=== PATIENT | male | born 1985 | race Caucasian/White ===

== ENCOUNTER 2025-01-19 04:34 | Inpatient (IN) | payer BC ==
[2025-01-19 04:58] LABS: #Basophils Less than 0.03 10x3/uL (0.0-0.2); #Eosinophils 0.10 10x3/uL (0.0-0.7); #Monocytes 0.44 10x3/uL (0.11-0.59); #Neutrophils 4.22 10x3/uL (1.40-6.50); %Basophils 0.1 % (0.0-1.0); %Eosinophils 1.4 % (0.0-10.0); %Lymphocytes 33.0 % (21.0-51.0); %Monocytes 6.1 % (0.0-10.0); %Neutrophils 58.7 % (42.0-75.0); Hematocrit 36.5 % (42.0-52.0); Hemoglobin 13.0 g/dL (14.0-18.0); Mean Corpuscular Hemoglobin 27.7 pg (27.0-31.0); Mean Corpuscular Volume 77.7 fL (78.0-98.0); Platelet Count 155 10x3/uL (130-400); Red Blood Cell (RBC) Count 4.70 mill/uL (4.70-6.10); White Blood Cell (WBC) Count 7.19 10x3/uL (4.8-10.8)
[2025-01-19 05:31] LABS: ALT (SGPT) 49 U/L (Less than 45); AST (SGOT) 36 U/L (11-34); Albumin 3.8 g/dL (3.1-4.5); Alkaline Phosphatase 85 U/L (40-110); Anion Gap 13 mmol/L (10-20); BUN (Urea Nitrogen) 10 mg/dL (8.9-20.6); Bilirubin, Total 0.7 mg/dL (0.3-1.2); Calc. Creatinine Clearance 0 mL/min (70-130); Calcium 8.6 mg/dL (7.8-10.44); Carbon Dioxide 23 mmol/L (22-29); Chloride 105 mmol/L (98-107); Globulin 3.3 g/dL (2.4-3.5); Glucose 106 mg/dL (70-105); Potassium 3.8 mmol/L (3.5-5.1); Sodium 137 mmol/L (136-145)
[2025-01-19 05:35] LABS: Lipase 988 U/L (8-78)
[2025-01-19 06:09] LABS: Bacteria/HPF None Seen HPF (None Seen); CAUTI Indications for Culture Pelvic or flank pain; Glucose, Urine (Dipstick) Normal (Negative); Leukocyte 75 Leu/uL (Negative); Protein, Urine (Dipstick) Negative (Neg-Trace); RBC/HPF 0-3 HPF (0-3); Specific Gravity, Urine 1.013 (1.002-1.036)
[2025-01-19 06:11] LABS: Urine Culture Reflex Yes Yes
[2025-01-19] MEDS ORDERED: Droperidol 5 MG/2 ML VIAL ONE (06:17)
[2025-01-19] MEDS ORDERED: Bisacodyl 10 MG SUPP PR PRN (07:47)
[2025-01-19] MEDS ORDERED: Melatonin 3 MG TAB PO PRN (07:47)
[2025-01-19] MEDS ORDERED: Senokot S 8.6-50 MG TAB PO PRN (07:47)
[2025-01-19] MEDS ORDERED: Electrolyte Replacement Protocol 1 EACH FS SCH (08:00)
[2025-01-19 08:05] VITALS: BMI 25.8
[2025-01-19 08:21] LABS: Magnesium 1.7 mg/dL (1.6-2.6)
[2025-01-19] MEDS: Magnesium 2 GM/50 ML(in water) 2 GM in Premix 1 BAG IVPB SCH (09:46)
[2025-01-19] MEDS: Ondansetron PF 4 MG/2 ML Vial IVP PRN (10:19)
[2025-01-19] MEDS: Pantoprazole 40 MG VIAL IVP SCH (14:17)
[2025-01-19 16:47] LABS: Anion Gap 12 mmol/L (10-20); BUN (Urea Nitrogen) 7 mg/dL (8.9-20.6); Calc. Creatinine Clearance 181 mL/min (70-130); Calcium 8.0 mg/dL (7.8-10.44); Carbon Dioxide 24 mmol/L (22-29); Chloride 109 mmol/L (98-107); Glucose 123 mg/dL (70-105); Potassium 4.0 mmol/L (3.5-5.1); Sodium 141 mmol/L (136-145)
[2025-01-19 16:53] LABS: Lipase 489 U/L (8-78)
[2025-01-19 17:09] LABS: Hep C IgG Ab NONREACTIVE S/CO (NonReactive); Hep C Index 0.19 S/CO (0-0.79)
[2025-01-19] MEDS ORDERED: Metoclopramide HCl 10 MG (2 mL) VIAL IVP PRN (19:50)
[2025-01-19] MEDS: Metoclopramide HCl 10 MG (2 mL) VIAL IVP SCH (20:11)
[2025-01-20] MEDS: Ketorolac Tromethamine 30 MG (1 mL) VIAL IVP SCH (00:50)
[2025-01-20] MEDS: Prochlorperazine 10 MG/2 ML VIAL SLOW IVP SCH ×3 (01:06→13:03)
[2025-01-20] MEDS: Ketorolac Tromethamine 30 MG (1 mL) VIAL IVP PRN (06:50)
[2025-01-20] MEDS: Pantoprazole 40 MG VIAL IVP SCH (08:06)
[2025-01-20 08:16] LABS: #Basophils Less than 0.03 10x3/uL (0.0-0.2); #Eosinophils Less than 0.03 10x3/uL (0.0-0.7); #Monocytes 0.42 10x3/uL (0.11-0.59); #Neutrophils 5.29 10x3/uL (1.40-6.50); %Basophils 0.1 % (0.0-1.0); %Eosinophils 0.0 % (0.0-10.0); %Lymphocytes 23.0 % (21.0-51.0); %Monocytes 5.6 % (0.0-10.0); %Neutrophils 70.8 % (42.0-75.0); Hematocrit 35.4 % (42.0-52.0); Hemoglobin 12.0 g/dL (14.0-18.0); Mean Corpuscular Hemoglobin 27.2 pg (27.0-31.0); Mean Corpuscular Volume 80.3 fL (78.0-98.0); Platelet Count 133 10x3/uL (130-400); Red Blood Cell (RBC) Count 4.41 mill/uL (4.70-6.10); White Blood Cell (WBC) Count 7.48 10x3/uL (4.8-10.8)
[2025-01-20 08:32] LABS: Iron Binding Capacity, Total 243 mcg/dL (261-462); Lipase 265 U/L (8-78); Magnesium 1.6 mg/dL (1.6-2.6)
[2025-01-20 08:35] LABS: Immunoglob - G (Total IgG) 1186 mg/dL (540-1822); Immunoglob - M (Total IgM) 90 mg/dL (22-240)
[2025-01-20 08:56] LABS: Ferritin 401.34 ng/mL (22-322); Vitamin B12 381 pg/mL (211-911)
[2025-01-20] MEDS: Magnesium 2 GM/50 ML(in water) 2 GM in Premix 1 BAG IVPB SCH (09:20)
[2025-01-20 09:42] LABS: HBSAB Concentration 79.08 mIU/mL; Hep B Core Total Ab NONREACTIVE (NonReactive); Hep B Core Total Index 0.12 S/CO (0-0.79); Hep B Surf Ag NONREACTIVE S/CO (NonReactive)
[2025-01-20] MEDS ORDERED: Iopamidol 370 76% 100 ML VIAL ONE (10:17)
[2025-01-20] MEDS ORDERED: Ondansetron PF 4 MG/2 ML Vial IVP PRN (10:59)
[2025-01-20] MEDS ORDERED: diphenhydrAMINE 25 MG CAP PO PRN (10:59)
[2025-01-20] MEDS ORDERED: diphenhydrAMINE 50 MG/ML VIAL IM PRN (10:59)
[2025-01-20] MEDS ORDERED: diphenhydrAMINE 50 MG/ML VIAL IVP PRN (10:59)
[2025-01-20] MEDS ORDERED: Communication Order-Pharmacy FS SCH (11:00)
[2025-01-20] MEDS: HYDROmorphone HCl/0.9% NaCl/PF 30 ML IV SCH (12:01)
[2025-01-20 15:05] VITALS: BMI 25.8
[2025-01-20] MEDS: Acetaminophen 325 MG TAB PO PRN (20:14)
[2025-01-20] MEDS: Acetaminophen 325 MG TAB PO SCH (21:05)
[2025-01-21 03:13] LABS: Hepatitis A Total ABS Negative (Negative)
[2025-01-21 05:49] LABS: #Basophils Less than 0.03 10x3/uL (0.0-0.2); #Eosinophils Less than 0.03 10x3/uL (0.0-0.7); #Monocytes 0.40 10x3/uL (0.11-0.59); #Neutrophils 5.54 10x3/uL (1.40-6.50); %Basophils 0.3 % (0.0-1.0); %Eosinophils 0.1 % (0.0-10.0); %Lymphocytes 16.7 % (21.0-51.0); %Monocytes 5.6 % (0.0-10.0); %Neutrophils 77.0 % (42.0-75.0); Hematocrit 33.6 % (42.0-52.0); Hemoglobin 11.3 g/dL (14.0-18.0); Mean Corpuscular Hemoglobin 27.0 pg (27.0-31.0); Mean Corpuscular Volume 80.2 fL (78.0-98.0); Platelet Count 123 10x3/uL (130-400); Red Blood Cell (RBC) Count 4.19 mill/uL (4.70-6.10); White Blood Cell (WBC) Count 7.19 10x3/uL (4.8-10.8)
[2025-01-21 06:10] LABS: Anion Gap 9 mmol/L (10-20); BUN (Urea Nitrogen) 10 mg/dL (8.9-20.6); Calc. Creatinine Clearance 195 mL/min (70-130); Calcium 7.7 mg/dL (7.8-10.44); Carbon Dioxide 21 mmol/L (22-29); Chloride 105 mmol/L (98-107); Glucose 86 mg/dL (70-105); Lipase 137 U/L (8-78); Potassium 3.4 mmol/L (3.5-5.1); Sodium 132 mmol/L (136-145)
[2025-01-21] MEDS: Potassium Chloride 20 MEQ in Premix 1 BAG IVPB SCH (08:00)
[2025-01-21 11:42] LABS: ANA Symphony (Qualitative) Negative (Negative); ANA Symphony (Quantitative) 0.2 Ratio (< 0.7 Negative); EliA Vaculitis New Method **** NEW METHOD ****; Mitochondrial Ab 2.1 U/mL (<4 Negative); dsDNA IgG Antibody 1.5 IU/mL (<10 Negative)
[2025-01-22 06:45] LABS: #Basophils Less than 0.03 10x3/uL (0.0-0.2); #Eosinophils 0.06 10x3/uL (0.0-0.7); #Monocytes 0.29 10x3/uL (0.11-0.59); #Neutrophils 3.15 10x3/uL (1.40-6.50); %Basophils 0.2 % (0.0-1.0); %Eosinophils 1.2 % (0.0-10.0); %Lymphocytes 28.0 % (21.0-51.0); %Monocytes 5.9 % (0.0-10.0); %Neutrophils 64.3 % (42.0-75.0); Hematocrit 33.4 % (42.0-52.0); Hemoglobin 11.6 g/dL (14.0-18.0); Mean Corpuscular Hemoglobin 27.6 pg (27.0-31.0); Mean Corpuscular Volume 79.5 fL (78.0-98.0); Platelet Count 128 10x3/uL (130-400); Red Blood Cell (RBC) Count 4.20 mill/uL (4.70-6.10); White Blood Cell (WBC) Count 4.90 10x3/uL (4.8-10.8)
[2025-01-22 07:06] LABS: Anion Gap 11 mmol/L (10-20); BUN (Urea Nitrogen) 7 mg/dL (8.9-20.6); Calc. Creatinine Clearance 192 mL/min (70-130); Calcium 8.2 mg/dL (7.8-10.44); Carbon Dioxide 22 mmol/L (22-29); Chloride 106 mmol/L (98-107); Glucose 85 mg/dL (70-105); Lipase 37 U/L (8-78); Potassium 3.3 mmol/L (3.5-5.1); Sodium 136 mmol/L (136-145)
[2025-01-22] MEDS: Potassium Chloride 20 MEQ in Premix 1 BAG IVPB SCH (08:28)
[2025-01-22] MEDS: HYDROcodone/Acetaminophen 5/325 mg Tablet PO PRN (12:04)
[2025-01-22 22:12] LABS: Smooth Muscle Total ABS 12 Units (0-19)
[2025-01-23 06:37] LABS: #Basophils Less than 0.03 10x3/uL (0.0-0.2); #Eosinophils 0.14 10x3/uL (0.0-0.7); #Monocytes 0.27 10x3/uL (0.11-0.59); #Neutrophils 2.15 10x3/uL (1.40-6.50); %Basophils 0.2 % (0.0-1.0); %Eosinophils 3.5 % (0.0-10.0); %Lymphocytes 35.6 % (21.0-51.0); %Monocytes 6.7 % (0.0-10.0); %Neutrophils 53.5 % (42.0-75.0); Hematocrit 33.9 % (42.0-52.0); Hemoglobin 11.8 g/dL (14.0-18.0); Mean Corpuscular Hemoglobin 27.3 pg (27.0-31.0); Mean Corpuscular Volume 78.5 fL (78.0-98.0); Platelet Count 145 10x3/uL (130-400); Red Blood Cell (RBC) Count 4.32 mill/uL (4.70-6.10); White Blood Cell (WBC) Count 4.02 10x3/uL (4.8-10.8)
[2025-01-23 06:54] LABS: Anion Gap 11 mmol/L (10-20); BUN (Urea Nitrogen) 6 mg/dL (8.9-20.6); Calc. Creatinine Clearance 192 mL/min (70-130); Calcium 8.6 mg/dL (7.8-10.44); Carbon Dioxide 24 mmol/L (22-29); Chloride 107 mmol/L (98-107); Glucose 94 mg/dL (70-105); Potassium 3.9 mmol/L (3.5-5.1); Sodium 138 mmol/L (136-145)
[2025-01-23 08:13] VITALS: BP 137/86; TEMP 98.5
== END 2025-01-23 11:00 | disposition home or self-care (01) | DRG 439 ==
LOC: ERS 04:34 → T4-B 06:39 → OBSVTOIN 01-20 11:54
PROVIDERS: ADMIT Internal Medicine; ATTEND Internal Medicine
DX: K85.91 Acute pancreatitis with uninfected necrosis, unspecified (principal); F33.9 Major depressive disorder, recurrent, unspecified; K86.1 Other chronic pancreatitis; F17.290 Nicotine dependence, other tobacco product, uncomplicated; R94.5 Abnormal results of liver function studies; F41.1 Generalized anxiety disorder; E87.6 Hypokalemia; K59.00 Constipation, unspecified; Z90.49 Acquired absence of other specified parts of digestive tract; Z98.890 Other specified postprocedural states; Z79.899 Other long term (current) drug therapy
CPT/HCPCS: 36415; 71045; 74177; 80048; 80053; 81001; 82607; 82728; 82787; 83516; 83550; 83690; 83735; 84100; 85025; 86015; 86038; 86225; 86704; 86706; 86708; 86803; 87040; 87077; 87086; 87186; 87340; 96361; 96374; 96375; J0780; J1790; J1885; J2060; J2270; J2405; J2470; J2543; J2550; J2765; J3010; J3475; J3480; J7030; Q9967

== ENCOUNTER 2025-05-28 08:34 | Outpatient (CLI) | payer BC | END 2025-05-28 08:35 | disposition home or self-care (01) | LOC: MRI 08:34 | PROVIDERS: ATTEND Internal Medicine Gastroenterology | DX: K86.2 Cyst of pancreas (principal); K86.89 Other specified diseases of pancreas; K85.90 Acute pancreatitis without necrosis or infection, unspecified; R93.3 Abnormal findings on diagnostic imaging of other parts of digestive tract; K65.4 Sclerosing mesenteritis; N28.1 Cyst of kidney, acquired; R16.1 Splenomegaly, not elsewhere classified | CPT/HCPCS: 74183; 76376; S8037 ==